=== PATIENT | male | born 1995 | race Caucasian/White ===

== ENCOUNTER 2018-06-19 23:09 | Emergency (ER) | payer SELFPAY ==
[2018-06-19] MEDS ORDERED: Ondansetron 4 MG/2 ML SDV IVPUSH ONE (23:17)
[2018-06-19] MEDS ORDERED: Sodium Chloride 0.9% 1,000 ML IV ONE (23:17)
[2018-06-19] MEDS ORDERED: Sodium Chloride 0.9% 2.5 ML Syringe FLUSH PRN (23:17)
[2018-06-19] MEDS ORDERED: Ketorolac 30 MG/ML SDV IVPUSH ONE (23:17)
[2018-06-19] MEDS ORDERED: Sodium Chloride 0.9% 10 ML Syringe FLUSH PRN (23:17)
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
[2018-06-19 23:51] LABS: CHLORIDE,CL 106 mmol/L (98-107); SODIUM,NA 145 mmol/L (136-148)
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
== END 2018-06-20 00:35 | disposition home or self-care (01) ==
LOC: MW.ED 23:09
DX: R55 Syncope and collapse (principal); Z72.89 Other problems related to lifestyle; W19.XXXA Unspecified fall, initial encounter
CPT/HCPCS: 36415; 70450; 72125; 80053; 82962; 85025; 96361; 96374; 96375; 99285; J1885; J2405; J7040